=== PATIENT | female | born 1950 | race Caucasian/White ===

== ENCOUNTER → 2022-04-05 | Outpatient (CLI) | payer MEDICARE, OTHER ==
--- NOTE | 2022-04-05 10:44 | Diagnostic Imaging Report ---
INDICATION: Follow-up wrist fracture. COMPARISON: 03/30/2022 FINDINGS: Multiple radiographic views of the right wrist were obtained and again show nonacute fractures of the distal radius and ulna. Transverse oriented fracture is seen through the metaphysis of the distal radius. There is some sclerosis about the fracture line, which may be on the basis of partial healing. Nondisplaced ulnar styloid fracture is also noted. Radiocarpal joint space is maintained. No unexpected radiopaque foreign bodies are seen. IMPRESSION: 1. Redemonstration fractures of the distal right radius and ulna as above. Dictated by: Dictated on workstation # [id number]
== END ==
LOC: ORTHO 10:10
PROVIDERS: ATTEND Orthopaedic Surgery
DX: S52.531A Colles' fracture of right radius, initial encounter for closed fracture (principal); X58.XXXA Exposure to other specified factors, initial encounter
CPT/HCPCS: 73110; G0463; 99213

== ENCOUNTER → 2022-05-03 | Outpatient (CLI) | payer MEDICARE, OTHER ==
--- NOTE | 2022-05-03 16:04 | Diagnostic Imaging Report ---
WRIST, RIGHT, 3 VIEWS OR MORE INDICATION: Wrist fracture follow-up. COMPARISON: 04/05/2022. TECHNIQUE: Three views of the right wrist. FINDINGS: The mildly impacted distal radial fracture maintains similar alignment and position. There is approximately 2 mm of depression of the articular surface at the level of the scaphoid fossa. Less than 5 degrees of dorsal angulation of the distal radial articular surface is unchanged. There may be some early healing of the radial fracture. Simple fracture of the tip of the ulnar styloid maintains stable alignment and position. IMPRESSION: Mildly impacted and intra-articular fracture of the distal radius maintains stable alignment and position. There may be early healing of the fracture. Dictated by: Dictated on workstation # [id number]
== END ==
LOC: ORTHO 10:02
PROVIDERS: ATTEND Orthopaedic Surgery
DX: Z47.89 Encounter for other orthopedic aftercare (principal); S52.501D Unspecified fracture of the lower end of right radius, subsequent encounter for closed fracture with routine healing; X58.XXXD Exposure to other specified factors, subsequent encounter
CPT/HCPCS: 73110; 99213

== ENCOUNTER → 2022-06-01 | Outpatient (CLI) | payer MEDICARE, OTHER ==
--- NOTE | 2022-06-01 15:04 | Diagnostic Imaging Report ---
INDICATION: Follow-up fracture. COMPARISON: 05/03/2022. FINDINGS: Multiple radiographic views of the right wrist were obtained and again demonstrate irregular sclerotic change to the distal radius. Overall appearance is stable. Ulnar styloid fracture is also again identified. No new acute osseous abnormality is seen. Radiocarpal joint space is maintained. No unexpected radiopaque foreign bodies are identified. IMPRESSION: 1. Redemonstration of healing fracture of the distal right radius. 2. Redemonstration of nonacute nondisplaced ulnar styloid fracture. Dictated by: Dictated on workstation # [id number]
== END ==
LOC: ORTHO 14:36
PROVIDERS: ATTEND Orthopaedic Surgery
DX: S62.101D Fracture of unspecified carpal bone, right wrist, subsequent encounter for fracture with routine healing (principal); X58.XXXD Exposure to other specified factors, subsequent encounter
CPT/HCPCS: 73110; G0463; 99213

== ENCOUNTER → 2022-07-26 | Outpatient (CLI) | payer MEDICARE, OTHER | LOC: ORTHO 11:00 | PROVIDERS: ATTEND Orthopaedic Surgery | DX: S52.531A Colles' fracture of right radius, initial encounter for closed fracture (principal); X58.XXXA Exposure to other specified factors, initial encounter | CPT/HCPCS: 99213 ==